=== PATIENT | male | born 1965 | race African-American/Black ===

== ENCOUNTER 2021-07-20 12:37 | Emergency (ER) | payer MEDICAID ==
[~2021-07-20] VITALS: Ht 167.6 cm; Wt 88.0 kg
[2021-07-20] MEDS ORDERED: CALCIUM CHLORIDE 1GM/10ML SYR IV NR (13:00)
[2021-07-20] MEDS ORDERED: CALCIUM GLUCONATE 100MG/ML 10ML VIAL IV NR (13:15)
[2021-07-20 13:50] LABS: BASOPHILS % 0.7 % (0.0-2.0); EOSINOPHILS % 2.4 % (0.0-5.0); HEMATOCRIT. 48.3 % (42.0-52.0); HEMOGLOBIN. 16.1 g/dL (14.0-18.0); LYMPHOCYTES % 24.1 % (20.0-50.0); MEAN CORPUSCULAR HEMOGLOBIN 29.5 pg (28.0-32.0); MEAN CORPUSCULAR VOLUME 88.4 fL (80.0-94.0); MEAN PLATELET VOLUME 8.6 fl (7.4-10.4); MONOCYTES % 7.7 % (2.0-8.0); NEUTROPHILS % 65.1 % (40.0-76.0); PLATELET 304 x1000/uL (130-400); RED BLOOD CELL COUNT 5.46 mill/uL (4.7-6.1)
[2021-07-20 14:31] LABS: CLARITY URINE CLEAR (CLEAR); COLOR URINE YELLOW (YELLOW); KETONES URINE NEGATIVE (NEGATIVE); LEUKOCYTE ESTERASE URINE NEGATIVE (NEGATIVE); NITRITE URINE NEGATIVE (NEGATIVE); OCCULT BLOOD URINE 2+ (NEGATIVE); PH URINE 5.5 (4.5-8.0); PROTEIN URINE NEGATIVE (NEGATIVE); SPECIFIC GRAVITY URINE 1.022 (1.005-1.030); UROBILINOGEN URINE 0.2 E.U./dL (0.2-1.0)
[2021-07-20 14:44] LABS: CHLORIDE 109 mEq/L (98-107)
[2021-07-20 14:50] LABS: PHOSPHORUS 2.8 mg/dL (2.5-4.9)
[2021-07-20 15:00] VITALS: BP 122/64
== END 2021-07-20 15:36 | disposition home or self-care (01) ==
LOC: ER 12:37
DX: R68.89 Other general symptoms and signs (principal)
CPT/HCPCS: 36415; 71045; 80069; 81003; 85025; 93005; 96374; 99285; J0610